=== PATIENT | male | born 1985 ===

== ENCOUNTER 2016-12-07 11:31 | Emergency (ER) | payer OTHER ==
[~2016-12-07] VITALS: Ht 170.2 cm; Wt 122.7 kg
[2016-12-07 11:57] VITALS: BP 147/107; PULSE 119; RESP 18; O2SAT 98
--- NOTE | 2016-12-07 12:40 | DRSVH ---
PROCEDURE: X-RAY RIGHT ANKLE, MINIMUM THREE VIEWS ([id number]) INDICATIONS: RIGHT ANKLE PAIN TECHNIQUE: 3 views of the ankle were acquired. COMPARISON: None. FINDINGS: Bones: No fractures or dislocations. Ankle mortise is normally aligned. No suspicious bony lesions . A bone island involving the distal tibia is incidentally noted. There are mild degenerative maria es of the talonavicular joint. Soft tissues: No tibiotalar joint effusion. Prominent soft tissue swelling about the ankle is noted . IMPRESSION: No acute right ankle fractures. Dictated by: Dillon Mojica M.D. on 12/07/2016 at 11:38 Approved by: Dillon Mojica M.D. on 12/07/2016 at 11:38
--- NOTE | 2016-12-07 12:54 | ED.REPORT ---
HPI-Extremity Problem Lower Date of Service December 07, 2016 ED Provider: Brendon Delgado DO 31 year old male presents to the ER complaining of right ankle injury status post falling down stairs yesterday. He states that he is barely able to ambulate , and doing so elicits severe pain in his ankle. Associated symptoms include head injury and sternal chest pain secondary to the fall. Patient denies LOC but reports that he was dazed immediately after. He also denies headache, nausea , vomiting, hematemesis, and hematuria. Nursing Notes Stated Complaint: POST FALL/ANKLE PAIN Chief Complaint: Multiple Trauma/Fall Nursing Notes Reviewed: Yes Allergies: Coded Allergies: Penicillins (Verified Allergy, Unknown, 12/07/16) General Time Seen by MD: 12:53 Chief Complaint Ankle injury right Hx Obtained From: Patient Arrived By: Walk-in Onset Occurred: Yesterday Symptom Duration: Since onset Caused by: Accidental Context: Occurred at: Home injury Location: : Ankle right Quality: Painful Severity: Current: Moderate Severity: Maximum: Moderate Associated with: Denies: Loss of consciousness, Nausea, Neck pain, Vomiting Pertinent Negative: Pt denies other symptoms Exacerbated by: Movement Pertinent Negative: Relieved by nothing Similar Sx Previous: No Past Medical History Past Medical History Reports: Hypertension Smoking History Unknown if Ever Smoker Ambulatory Status Independent Review of Systems Musculoskeletal: Reports: Joint pain (Right Ankle), Denies: Back pain, Extremity pain, Lumbar pain, Neck pain Neurologic: Denies: Headache, Syncope Complete sys rev & neg: except as marked. Cardiovascular: Reports: Chest pain GI: Denies: Nausea, Vomiting Male: Denies Hematuria Physical Exam Initial Vital Signs Vital Signs (First) Date Time Temp Pulse Resp B/P Pulse Ox O2 Delivery O2 Flow Rate FiO2 12/07/16 11:57 35.6 119 18 147/107 98 12/07/16 13:42 Room Air Initial VS: Reviewed Neck: Supple, Non-tender, Full range of motion Abdomen / GI: Soft, Non-tender, No guarding, No rebound, No distention Upper Extremities: Vascular intact, Neuro intact, No swelling, No tenderness Skin: Warm, Dry, No cyanosis Neurologic: Alert, Oriented, Nonfocal Psychiatric: Mood/affect normal, Behavior normal, Normal thought content Lower Extremity / Pelvis / MS: Atraumatic, Inspection NL, Full range of motion , No swelling, Non-tender, No erythema, No deformity, Neurologic intact, Vascular intact, No edema Ankle / Foot: Neurologic intact, Vascular intact Right Ankle: Positive: Ecchymosis present, ROM reduced, Tenderness present... ( at ankle mortis) No proximal fibular tenderness. 2+ DP pulses. Respiratory / Chest: Breath sounds NL, Breath sounds = bilat, No respiratory distress, No rales, No rhonchi, No wheezing Chest Wall / Ribs: Positive: Sternum tender Cardiovascular: Regular rhythm, No murmurs Heart Rate / Rhythm: Positive: Tachycardia Head / Eyes: Normocephalic, PERRL superficial scab to the top of the head. Back: Atraumatic, Inspection NL, Full range of motion, No midline vertebral tend, No CVA tenderness Additional Notes: No bruising. Interpretation & Diagnostics Lab Results Interpretation Result Diagram: 12/07/16 1420 Test 12/07/16 14:20 White Blood Count 13.9th/mm3 (3.8-10.1) Red Blood Count 5.69mil/mm3 (4.40-5.80) Hemoglobin 17.5g/dL (13.8-17.2) Hematocrit 50.8% (41.0-50.0) Mean Corpuscular Volume 89.3fL (81-100) Mean Corpuscular Hemoglobin 30.8pg (27.0-35.0) Mean Corpuscular Hemoglobin Concent 34.4% (32.0-37.0) Red Cell Distribution Width 12.8% (12.3-15.4) Platelet Count 323bil/L (150-400) Neutrophils (%) (Auto) 61.7% (40-74) Lymphocytes (%) (Auto) 28.4% (14-46) Monocytes (%) (Auto) 8.6% (4-12) Eosinophils (%) (Auto) 0.6% (0-5) Basophils (%) (Auto) 0.3% (0-3) ECG Interpretation ECG Interpretation: Sinus tachycardia, rate 118 Time: 14:25 Interpreted by: ED physician X-Ray Chest Interpretation Chest Xray Interpretation: IMPRESSION: No acute process. Dictated by: Bob Noyola M.D. on 12/07/2016 at 13:34 Approved by: Bob Noyola M.D. on 12/07/2016 at 13:34 View: AP & lat Interpretation / Wet Read by: Interpret - Radiologist X-Ray Interpretation Xray Interpretation: IMPRESSION: No acute right ankle fractures. Dictated by: Dillon Mojica M.D. on 12/07/2016 at 11:38 Approved by: Dillon Mojica M.D. on 12/07/2016 at 11:38 X-Ray Ordered: Foot right Interpretation / Wet Read by: Interpret - Radiologist Re-Eval/Medical Decision Med Decision/Clinical Course Ultimately it appears that patient has a bad right ankle sprain, he is neurovascularly intact he will be placed in a walking boot and given crutches. He also had a head injury without loss of consciousness and without ongoing headache or neurologic deficits. It seems that there is not an obvious criteria for head CT at this time. He does however have persistent tachycardia of unclear etiology, serial exams are reassuring against identify other traumatic injury going on, but due to persistent tachycardia in the setting of a recent trauma labs and an abdominal pelvis CAT scan ordered. Chest x-ray was performed and was normal. Ultimately care will be transferred Dr. Carter. The patient's hemoglobin and hematocrit are elevated which may be suggestive of dehydration though further labs are still pending. Re-Evaluation/Progress : Time of Eval: 14:03 Re-Evaluation/Progress Note: Patient continues to be tachycardic. Discharge & Departure Shift Change Sign-Out Patient Care Transferred: Yes Discussed Complaint(s): Yes Laboratory Evaluation: Ordered, not yet done Impression: Primary Impression: Right ankle sprain Additional Impression: Tachycardia Discharge Condition All VS Reviewed: Yes Condition: Stable Care Transferred to: Dr. Carter Care Transferred at: 14:49 Kiran Attestation Portions of this note were transcribed by Curtis Sawyer. I, Dr. Delgado, personally performed the history, physical exam and medical decision-making; I reviewed and confirmed the accuracy of the information in the transcribed note. Signed by: Kiran Hackett, 12/07/2016 at 14:49 Brendon Delgado DO December 07, 2016 12:54 CURTIS SAWYER December 07, 2016 13:06
[2016-12-07] MEDS ORDERED: HYDROcodone-APAP 5-325 mg Tablet PO ONE (13:05)
[2016-12-07] MEDS ORDERED: TdaP Vaccine 0.5 mL Inj IM ONE (13:10)
--- NOTE | 2016-12-07 13:35 | DRSVH ---
PROCEDURE: X-RAY CHEST, TWO VIEWS ([id number]) INDICATIONS: chest pain post fall TECHNIQUE: 2 views of the chest were acquired. COMPARISON: None. FINDINGS: Surgical changes and devices: None. Lungs and pleura: No pleural effusions or pneumothorax. Lungs are clear. Mediastinum: Mediastinal contours are normal. Heart size is normal. Bones and chest wall: No suspicious bony abnormalities. Soft tissues appear unremarkable. IMPRESSION: No acute process. Dictated by: Bob Noyola M.D. on 12/07/2016 at 13:34 Approved by: Bob Noyola M.D. on 12/07/2016 at 13:34
[2016-12-07 13:42] VITALS: BP 137/91; PULSE 111; RESP 18; O2SAT 96
[2016-12-07 14:47] LABS: BASOPHILS % (AUTO) 0.3 % (0-3); EOSINOPHILS % (AUTO) 0.6 % (0-5); MONOCYTES % (AUTO) 8.6 % (4-12); Mean Corpuscular Hemoglobin 30.8 pg (27.0-35.0); Mean Corpuscular Volume 89.3 fL (81-100); NEUTROPHILS % (AUTO) 61.7 % (40-74); Platelet Count 323 bil/L (150-400)
[2016-12-07 14:53] LABS: INR 0.96 ratio
[2016-12-07] MEDS ORDERED: 0.9% Sodium Chloride 1,000 ML IV ONE (14:55)
--- NOTE | 2016-12-07 15:51 | DRSVH ---
PROCEDURE: CT ABDOMEN AND PELVIS WITH CONTRAST TRAUMA (PNL [id number]) INDICATIONS: fall down stairs, tachycardia TECHNIQUE: After the administration of intravenous contrast, 5 mm thick sections acquired from the diaphragms to the symphysis. 5 mm thick coronal and sagittal reformats were acquired. Optional 10-minute delayed imaging may be performed from the kidneys to the bladder. For radiation dose reduction, the followi ng was used: automated exposure control, adjustment of mA and/or kV according to patient size. COMPARISON: None. FINDINGS: Image quality: Excellent. ABDOMEN: Lung bases: Lung bases are clear. Heart size is normal. No pericardial effusion. Inferior ribs ar e intact. No basal pleural effusions or pneumothorax. Solid organs: Liver and spleen are normal in size and enhancement, without lacerations. Gallbladder is within normal limits. Biliary system is non-dilated. Pancreas enhances normally, without transe ction. No adrenal hematomas. Both kidneys enhance normally, without hydronephrosis or lacerations. Peritoneum and bowel: No free fluid or air. Unenhanced bowel loops demonstrate normal wall thicknes s and caliber. Normal appendix. Nodes and vessels: No retroperitoneal or mesenteric adenopathy. Aorta and inferior vena cava are no rmal in size and enhancement. Miscellaneous: No ventral hernias. PELVIS: Genitourinary: There is bladder is decompressed. Miscellaneous: No inguinal hernias or adenopathy. Bones: Pelvic ring and hip joints appear intact. No vertebral compression fractures. IMPRESSION: No acute process. Dictated by: Bob Noyola M.D. on 12/07/2016 at 15:47 Approved by: Bob Noyola M.D. on 12/07/2016 at 15:50
[2016-12-07 16:34] VITALS: PULSE 112; O2SAT 96
[2016-12-07 16:44] VITALS: BP 137/91; PULSE 112; RESP 18; O2SAT 96
== END 2016-12-07 16:46 ==
LOC: SED 11:31
DX: S93.401A Sprain of unspecified ligament of right ankle, initial encounter (principal); S00.80XA Unspecified superficial injury of other part of head, initial encounter; R07.2 Precordial pain; R00.0 Tachycardia, unspecified; W10.8XXA Fall (on) (from) other stairs and steps, initial encounter; Y93.01 Activity, walking, marching and hiking; Y99.8 Other external cause status; Y92.018 Other place in single-family (private) house as the place of occurrence of the external cause; I10 Essential (primary) hypertension; Z23 Encounter for immunization; Z88.0 Allergy status to penicillin
CPT/HCPCS: 36415; 71020; 73610; 74177; 80053; 85025; 85610; 86850; 90471; 90715; 93005; 96360; 99285; J7030; Q9967